=== PATIENT | female | born 1940 | race Caucasian/White ===

== ENCOUNTER → 2018-04-14 | Day surgery (SDC) | payer MEDICARE, BC ==
[~2018-04-14] MED LIST: ATEN-104 PO; ATROPINE SULFATE 1% OPHT SOLN 2 ML BTL ONE; COZA50TA PO; DEXAMETHASONE SOD PHOS 4 MG/ML VIAL ONE; EPINEPHrine HCL (1:1000) 1 MG/ML VIAL ONE; EVIS60TA PO; FLURBIPROFEN 0.03% OPHT SOLN 2.5 ML BTL ONE; GLUCTAB PO; HYALURONIDASE/LIDOCAINE/BUPIVACAINE 5 ML SYR ONE; LACTATED RINGER'S 1000 ML INJ 1,000 ML ONE; NEOMYCIN/POLYMYXIN/DEXAMETHASONE OPTH OINT 3.5 GM TUBE ONE; PHENYLEPHRINE HCL 2.5 % OPTH SOLN 15 ML BTL ONE; PROPOFOL 200 MG/20 ML AMP IV ONE; SPIR25TA PO; TETRACAINE 0.5% OPTH SOLN 15 ML BTL ONE; TROPICAMIDE 1% OPHT SOLN 15 ML BTL ONE; ZOCO40TA PO; ceFAZolin INJ 1,000 MG VIAL ONE
--- NOTE | 2018-04-20 14:44 | MP ---
cc: Aj Cornelius MD DATE OF OPERATION: 04/14/2018 DATE OF : 1940 PREOPERATIVE DIAGNOSIS: Macular hole, left eye. POSTOPERATIVE DIAGNOSIS: Macular hole, left eye. PROCEDURE PERFORMED: Pars plana vitrectomy, membrane peeling, gas-fluid exchange, all left eye. ANESTHESIA: MAC. SURGEON: Aj Cornelius MD. COMPLICATIONS: None. PROCEDURE: After informed consent was obtained and the eye was anesthetized with peribulbar anesthesia, she was brought to the operating room and the left eye was prepared and draped in the usual sterile fashion. A wire lid speculum was placed in the patient's left eye. 23 gauge vitrectomy cannulas were then placed in the lower temporal, supratemporal and supranasal quadrants 3 millimeters posterior to the corneoscleral limbus. An infusion cannula was placed lower temporally. Core vitrectomy was then performed using the vitreous cutter. The vitrectomy was carried out as far as possible to the vitreous base. Posteriorly the internal limiting membrane was peeled off from around the macular hole using intraocular forceps. Careful indirect ophthalmoscopy with scleral depression was then performed and no peripheral retinal breaks were noted. A complete air fluid exchange was then performed. The air was then exchanged for 16% C3F8. The three vitrectomy cannulas were then removed. Subconjunctival injections of dexamethasone and Ancef were placed. An atropine drop, Maxitrol ointment and a patch and shield were then applied. The patient tolerated the procedure well. There were no complications. She will remain face down over the next five days. [facility]. Aj Cornelius MD TAB/SB , 02:32 PM , 02:43 PM
== END | disposition home or self-care (01) ==
LOC: ESDC 11:54
PROVIDERS: ATTEND Ophthalmology Retina Specialist
DX: H35.342 Macular cyst, hole, or pseudohole, left eye (principal)
CPT/HCPCS: 00145; 67042; J0171; J0690; J1100; J7120